=== PATIENT | male | born 1975 | race American Indian/Alaskan Native ===

== ENCOUNTER 2017-01-12 13:11 | Emergency (ER) | payer SELFPAY ==
[2017-01-12 13:16] VITALS: TEMP 98.2; BMI 29.2
--- NOTE | 2017-01-12 14:39 | PDOC ---
Attending Attestation - Resident Resident Name: Fredi Angelo - ED Attending Attestation I have performed the following: I have examined & evaluated the patient, The case was reviewed & discussed with the resident, I agree w/resident's findings & plan, Exceptions are as noted - HPI HPI: 01/12/17 14:36 41yo M hx PUD p/w complaints of fatigue and dark stools x 2-3 days. Pt reports he is visiting from [place] for a conference. Has had bleeding 2/2 ulcers in the past. Has been drinking 2-3 alcoholic drinks while [place] the states. Recent labs 2 weeks ago with hgb 15. Denies fevers, chills, CP, SOB, abd pain, N/V/D, LE edema, urinary sxs. - Physicial Exam PE: 01/12/17 14:38 GENERAL: Awake, alert, and fully oriented, in no acute distress HEAD: No signs of trauma EYES: PERRLA, EOMI, sclera anicteric, conjunctiva clear ENT: Auricles normal inspection, hearing grossly normal, nares patent, oropharynx clear without exudates. Moist mucosa NECK: Normal ROM, supple, no lymphadenopathy, JVD, or masses LUNGS: Breath sounds equal, clear to auscultation bilaterally. No wheezes, and no crackles HEART: Regular rate and rhythm, normal S1 and S2, no murmurs, rubs or gallops ABDOMEN: Soft, nontender, normoactive bowel sounds. No guarding, no rebound. No masses EXTREMITIES: Normal range of motion, no edema. No clubbing or cyanosis. No cords, erythema, or tenderness NEUROLOGICAL: Normal speech, cranial nerves intact, negative pronator drift, 5/ 5 strength in all 4 extremities, normal sensation to light touch in all 4 extremities, normal cerebellar exam, normal gait, normal reflexes and tone SKIN: Warm, Dry, normal turgor, no rashes or lesions noted. Rectal exam: brown stool, guaic negative - Medical Decision Making 01/12/17 15:03 41yo M hx PUD p/w dark stools and concern for GIB. Stool brown, guaiac negative. Pt reports eating a lot of spinach leaves a few days ago. Vitals with BP slightly elevated to 150s systolic, on my repeat exam 134/82. Hgb 16. Unlikely GIB. I discussed the physical exam findings, ancillary test results and final diagnoses with the patient. I answered all of the patient's questions. The patient was satisfied with the care received and felt comfortable with the discharge plan and treatment plan. The patient will call their primary care physician within 24 hours to arrange follow-up and will return to the Emergency Department with any new, persistent or worsening symptoms.
--- NOTE | 2017-01-12 14:40 | PDOC ---
History of Present Illness - General Chief Complaint: Rectal Bleed Stated Complaint: ABD PAIN Time Seen by Provider: 01/12/17 13:43 - History of Present Illness Initial Comments: 01/12/17 14:25 The patient is a 41 year old male with history of Peptic ulcers who presents for evaluation of dark stools. The patient reports that he is visiting from [place] for a conference and has been drinking more frequently then normal over the past week. He has noted dark tarry like stools over the past 2-3 days. He has noted that he has been feeling more fatigued and is concerned that he might be anemic and wants to have his hemoglobin checked. He had recent labs done at an outside facility 2 weeks ago that demonstrated an normal hemoglobin count. He currently denies any abdominal pain, fevers, chills, SOB, chest pain, or changes with urination. Family member with the patient states that he does not look more pale than usual. Past History - Past Medical History Allergies/Adverse Reactions: Allergies Allergy/AdvReac Type Severity Reaction Status Date / Time No Known Allergies Allergy Verified 01/12/17 13:16 Asthma: Yes GI Disorders: Yes (ulcer) HTN: Yes - Suicide/Smoking/Psychosocial Hx Smoking History: Current every day smoker Number of Cigarettes Smoked Daily: 4 Information on smoking cessation initiated: Yes 'Breaking Loose' booklet given: 01/12/17 Hx Alcohol Use: Yes (daily) Drug/Substance Use Hx: No Substance Use Type: None Review of Systems - Review of Systems Comments:: 01/12/17 14:28 Constitutional: Fatigue. No fevers, chills, malaise HEENT: No Rhinorrhea, nasal congestion, visual changes Cardiovascular: No chest pain, syncope, palpitations, lightheadedness Respiratory: No Cough, SOB, Hemoptysis, Gastrointestinal: Melena. No Abdominal pain, Nausea, Vomiting, Constipation, Diarrhea, Genitourinary: No Dysuria, Frequency, Urgency, Hesitancy, Hematuria, Flank pain Musculoskeletal: No Myalgia, arthralgia Skin: No rashes, bruising, pallor Neurologic: No Headache, Dizziness, Numbness, Weakness, or Tingling *Physical Exam - Vital Signs Last Vital Signs Temp Pulse Resp BP Pulse Ox 98.2 F 82 19 154/94 100 01/12/17 13:14 01/12/17 13:14 01/12/17 13:14 01/12/17 13:14 01/12/17 13:14 - Physical Exam Comments: 01/12/17 14:29 General Appearance: Nourished. No Apparent Distress HEENT: EOMI, TOM. No pallor noted. No Pharyngeal Erythema, Tonsillar Exudate , Tonsillar Erythema Neck: No Cervical Lymphadenopathy Respiratory/Chest: Lungs Clear, Normal Breath Sounds. No Crackles, Rales, Rhonchi, Wheezing Cardiovascular: Regular Rhythm, Regular Rate. No Murmur, Gallops, Rubs Gastrointestinal/Abdominal: Normal Bowel Sounds, Soft. No Guarding, Rebound, Tenderness Musculoskeletal: No CVA Tenderness Extremity: Normal Capillary Refill Integumentary: Normal Color, Dry, Warm Neurologic: Fully Oriented, Alert, Normal Mood/Affect, Normal Response, Motor Strength 5/5. ED Treatment Course - LABORATORY CBC & Chemistry Diagram: 01/12/17 14:35 01/12/17 14:35 - ADDITIONAL ORDERS Additional order review: Laboratory Results 01/12/17 14:00 Stool Occult Blood Negative Medical Decision Making - Medical Decision Making 01/12/17 15:04 The patient is a 41 year old male with history of Peptic ulcers who presents for evaluation of dark stools. Differential includes but is not limited to: Peptic ulcer, hemorrhoids, pancreatitis, colitis, metabolic derangement. Given his history of peptic ulcers as well as reported history of dark stools, it is possible his symptoms are due to an upper GI bleed. However stool occult blood was negative here in the ED. We will obtain a cbc, cmp, lipase to evaluate for anemia and other etiologies and continue to monitor and reassess. 01/12/17 15:10 Cbc, cmp, lipase are unremarkable. Patient is feeling well. We are comfortable discharging the patient home at this time with PCP follow up when he travels back to [facility]. We discussed the results with the patient and the plan and they voiced understanding and are agreeable. *DC/Admit/Observation/Transfer Diagnosis at time of Disposition: Fatigue Qualifiers: Fatigue type: unspecified Qualified Code(s): R53.83 - Other fatigue - Discharge Dispostion Disposition: HOME Condition at time of disposition: Good Admit: No - Patient Instructions Printed Discharge Instructions: DI for Fatigue Additional Instructions: Follow up with your primary care doctor in [place] within 1-2 days. Seek medical attention immediately if you have any bleeding or any concerning symptoms
[2017-01-12 14:43] LABS: BASOPHIL 1.1 % (0-2.0); EOSINOPHIL 6.1 % (0-4.5); MCH 31.6 pg (25.7-33.7); MCHC 34.7 g/dl (32.0-35.9); MEAN CELL VOLUME 91.1 fl (80-96); MEAN PLT VOLUME 7.4 fl (7.5-11.1); NEUTROPHILS 55.5 % (42.8-82.8); PLATELET COUNT 220 K/MM3 (134-434); RDW 12.6 % (11.9-15.9); WHITE BLOOD COUNT 7.9 K/mm3 (4.0-10.0)
[2017-01-12 14:59] LABS: ALBUMIN 3.7 g/dl (3.4-5.0); ALK PHOS 82 U/L (45-117); ANION GAP 10 (8-16); BILIRUBIN,TOTAL 0.8 mg/dL (0.2-1.0); CALCIUM 8.4 mg/dL (8.5-10.1); CO2 23 mmol/L (21-32); CREATININE 1.1 mg/dL (0.7-1.3); GLUCOSE,RANDOM 88 mg/dL (74-106); SGOT/AST 27 U/L (15-37); SGPT/ALT 44 U/L (12-78); TOT PROT 7.3 g/dl (6.4-8.2)
[2017-01-12 15:34] VITALS: BP 138/72; PULSE 70
== END 2017-01-12 15:34 | disposition home or self-care (01) ==
LOC: JER 13:11
DX: R53.83 Other fatigue (principal); F17.210 Nicotine dependence, cigarettes, uncomplicated
CPT/HCPCS: 36415; 80053; 82272; 83690; 85025; 99284-25